=== PATIENT | female | born 1975 | race Hispanic/Latino ===

== ENCOUNTER 2021-07-17 14:45 | Outpatient (CLI) | payer BC ==
[2021-07-17] MEDS ORDERED: Magnevist 469MG/ML 20 ML VIAL ONE (15:25)
== END 2021-07-17 14:46 | disposition home or self-care (01) ==
LOC: CSHMRI 14:45
PROVIDERS: ATTEND Psychiatry & Neurology Neurology
DX: G51.31 Clonic hemifacial spasm, right (principal); Z86.73 Personal history of transient ischemic attack (TIA), and cerebral infarction without residual deficits
CPT/HCPCS: 70553; A9579

== ENCOUNTER 2022-08-11 15:28 | Outpatient (CLI) | payer BC | END 2022-08-11 15:29 | disposition home or self-care (01) | LOC: CSHMAMMO 15:28 | PROVIDERS: ATTEND Family Medicine | DX: Z12.31 Encounter for screening mammogram for malignant neoplasm of breast (principal) | CPT/HCPCS: 77063; 77067 ==

== ENCOUNTER 2023-08-20 15:23 | Outpatient (CLI) | payer BC | END 2023-08-20 15:24 | disposition home or self-care (01) | LOC: CSHMAMMO 15:23 | PROVIDERS: ATTEND Family Medicine | DX: Z12.31 Encounter for screening mammogram for malignant neoplasm of breast (principal) | CPT/HCPCS: 77063; 77067 ==